=== PATIENT | male | born 1935 | race Caucasian/White ===

== ENCOUNTER → 2016-12-06 | Outpatient (CLI) | payer MEDICARE, BC ==
--- NOTE | 2016-12-06 12:34 | ECHOF ---
Referral Reason:R07.89 atypical chest pain MEASUREMENTS -------- HEIGHT: 188.0 cm WEIGHT: 99.8 kg BP: 136/77 RVIDd: 3.5 cm (< 3.3) IVSd: 0.9 cm (0.6 - 1.1) LVIDd: 4.1 cm (3.9 - 5.3) LVPWd: 1.0 cm (0.6 - 1.1) IVSs: 1.7 cm LVIDs: 3.1 cm LVPWs: 1.5 cm LA Diam: 2.9 cm (2.7 - 3.8) LAESV Index (A-L): 26.36 ml/m Ao Diam: 3.6 cm (2.0 - 3.7) AV Cusp: 1.7 cm (1.5 - 2.6) LA Diam: 3.2 cm (2.7 - 3.8) MV EXCURSION: 13.536 mm (> 18.000) MV EF SLOPE: 58 mm/s (70 - 150) EPSS: 0.7 cm MV E Roque: 0.66 m/s MV DecT: 307 ms MV A Roque: 0.80 m/s MV E/A Ratio: 0.83 RAP: 5.00 mmHg RVSP: 33.11 mmHg FINDINGS -------- Sinus rhythm with extra systolic beats. This was a technically good study. Left ventricular wall thickness is normal. Overall left ventricular systolic function is normal with, an EF between 55 - 60 %. The right ventricle is mildly enlarged. Normal LA size by volume 22+/-6 ml/m2. The right atrium is normal in size. Aortic valve is trileaflet and is mildly thickened. Mild mitral annular calcification present. Mild mitral regurgitation is present. Mild tricuspid regurgitation present. Right ventricular systolic pressure is normal at < 35 mmHg. Pulmonic valve appears structurally normal. The aortic root size is normal. Normal inferior vena cava with normal inspiratory collapse consistent with estimated right atrial pressure of 5 mmHg. Echo free space may represent effusion or a pericardial fat pad. CONCLUSIONS -------- 1. Sinus rhythm with extra systolic beats. 2. Mild mitral regurgitation is present. 3. Mild tricuspid regurgitation present. 4. Right ventricular systolic pressure is normal at < 35 mmHg. 5. Pulmonic valve appears structurally normal. 6. The aortic root size is normal. 7. Echo free space may represent effusion or a pericardial fat pad. 8. This was a technically good study. 9. Left ventricular wall thickness is normal. 10. Overall left ventricular systolic function is normal with, an EF between 55 - 60 %. 11. The right ventricle is mildly enlarged. 12. Normal LA size by volume 22+/-6 ml/m2. 13. The right atrium is normal in size. 14. Aortic valve is trileaflet and is mildly thickened. 15. Mild mitral annular calcification present. [employer]ER: Caridad Hauser RDCS
== END | disposition home or self-care (01) ==
LOC: RADECHMAIN 10:49
PROVIDERS: ATTEND Family Medicine
DX: I08.3 Combined rheumatic disorders of mitral, aortic and tricuspid valves (principal)
CPT/HCPCS: 93306

== ENCOUNTER 2017-10-01 11:59 | Emergency (ER) | payer MEDICARE, BC ==
[2017-10-01 12:05] VITALS: BP 125/67; PULSE 101; RESP 18; TEMP 97.5
--- NOTE | 2017-10-01 12:31 | ED ---
Skin/Abscess/FB HPI - General Chief complaint: Skin/Abscess/Foreign Body Stated complaint: Poss Shingles Time Seen by Provider: 10/01/17 12:12 Source: patient Mode of arrival: ambulatory Limitations: no limitations - History of Present Illness Initial comments: 82-year-old male patient presented to the emergency department today for evaluation of a rash to his right lower quadrant abdomen. Patient states that the rash started approximately one week ago. States that the area has been red and very itchy. He states that it started off as a very small area the size of his thumbnail and has become larger. He denies any pain, blisters, or drainage from the site. He states that he did start wearing some new belts over the last couple of months. He denies use of any new soaps, detergents, lotions, or other new products. Denies rash to any other part of his body. Denies any cough, congestion, nasal drainage, sore throat, or swollen throat. Patient denies any recent fever, chills, shortness breath, chest pain, abdominal pain, nausea, vomiting, diarrhea, constipation, back pain, numbness, tingling, headache, visual changes, hematuria, dysuria, urinary frequency, urinary urgency , or any other complaints. Patient is concerned for shingles. He has not had zoster vaccination. - Related Data Home Medications Medication Instructions Recorded Confirmed Lisinopril [Zestril] 10 mg PO DAILY 10/01/17 10/01/17 Simvastatin [Zocor] 20 mg PO HS 10/01/17 10/01/17 Tamsulosin [Flomax] 0.4 mg PO DAILY 10/01/17 10/01/17 Allergies Allergy/AdvReac Type Severity Reaction Status Date / Time Sulfa (Sulfonamide Allergy Rash/Hives Verified 10/01/17 12:05 Antibiotics) Review of Systems ROS Statement: Those systems with pertinent positive or pertinent negative responses have been documented in the HPI. ROS Other: All systems not noted in ROS Statement are negative. Past Medical History Past Medical History: Hyperlipidemia, Hypertension, Prostate Disorder History of Any Multi-Drug Resistant Organisms: None Reported Additional Past Surgical History / Comment(s): AAA Past Psychological History: No Psychological Hx Reported Smoking Status: Current every day smoker Past Alcohol Use History: None Reported Past Drug Use History: None Reported General Exam Limitations: no limitations General appearance: alert, in no apparent distress, other (This is a well- developed, nourished, healthy appearing 82-year-old male patient in no acute distress. Vital signs upon presentation are temperature 97.5F, pulse 101, respirations 18, blood pressure 125/67, pulse ox 99% on room air.) Eye exam: Present: normal appearance, PERRL, EOMI. Absent: scleral icterus, conjunctival injection, periorbital swelling ENT exam: Present: normal exam, normal oropharynx, mucous membranes moist Respiratory exam: Present: normal lung sounds bilaterally. Absent: respiratory distress, wheezes, rales, rhonchi, stridor Cardiovascular Exam: Present: regular rate, normal rhythm, normal heart sounds. Absent: systolic murmur, diastolic murmur, rubs, gallop, clicks Neurological exam: Present: alert, oriented X3, CN II-XII intact Psychiatric exam: Present: normal affect, normal mood Skin exam: Present: warm, dry, intact, normal color, rash Expanded Type of lesion: Present: rash Distribution of rash: abdomen (RLQ) Description of rash: Present: size (small), erythematous. Absent: tenderness, swelling, vesicular, blisters, bullous, petechial, purpuic, urticarial, crusting , discharge, fluctuant Course Vital Signs 10/01/17 12:01 Temperature 97.5 F L Pulse Rate 101 H Respiratory 18 Rate Blood Pressure 125/67 O2 Sat by Pulse 99 Oximetry Medical Decision Making - Medical Decision Making 82-year-old male patient presented to the emergency department today for evaluation of a rash to his right lower quadrant abdomen. Physical examination did reveal a small area of erythematous small round flat lesions, small amount of surrounding erythema. Lesions are nonvesicular and non-petechial. Patient reported that the rash has been present for one week and has been very itchy. I did inform him that symptoms are not consistent with a herpes zoster infection. Patient has recently started wearing new belts. I did inform and this is possibly a contact dermatitis related to this. He is instructed to use hydrocortisone cream as well as Benadryl for symptom relief. He is instructed to follow-up with his primary care physician for recheck in 1-2 days. He is instructed to return here immediately for any new, worsening, or concerning symptoms. He verbalizes understanding and agrees with this plan. Disposition Clinical Impression: Rash Disposition: HOME SELF-CARE Condition: Good Instructions: Contact Dermatitis (ED), Acute Rash (ED) Additional Instructions: Purchase hydrocortisone cream [id number]. Apply this as directed by package labeling. You can take benadryl 25-50mg for symptom relief as well. Follow up for a recheck with your primary doctor if symptoms do not improve over the next 1-2 days. Return here immediately for any new, worsening, or concerning symptoms. Referrals: Johnny Wright DO [Primary Care Provider] - 1-2 days Time of Disposition: 12:31
== END 2017-10-01 12:44 | disposition home or self-care (01) ==
LOC: EC 11:59
DX: R21 Rash and other nonspecific skin eruption (principal); E78.5 Hyperlipidemia, unspecified; I10 Essential (primary) hypertension; N42.9 Disorder of prostate, unspecified; F17.200 Nicotine dependence, unspecified, uncomplicated; Z79.899 Other long term (current) drug therapy; Z88.2 Allergy status to sulfonamides
CPT/HCPCS: 99282

== ENCOUNTER 2018-10-09 12:55 | Emergency (ER) | payer BC, MEDICARE ==
--- NOTE | 2018-10-09 13:44 | ED ---
General Adult HPI - General Chief complaint: ENT Stated complaint: rt side ear/neck/shoulder pain Time Seen by Provider: 10/09/18 13:21 Source: patient, RN notes reviewed, old records reviewed Mode of arrival: ambulatory Limitations: no limitations - History of Present Illness Initial comments: 83-year-old male presents for evaluation of sharp pain in the right side of his throat. This is worse with swallowing. He's had difficulty eating secondary to the pain. Denies any dyspnea. Denies cough. Denies URI symptoms. Denies ear pain. Patient's pain is normally in the right side of his neck. He does report some radiation into the shoulder which is worse with movement. Denies central chest pain. Denies abdominal pain nausea vomiting. - Related Data Home Medications Medication Instructions Recorded Confirmed Lisinopril [Zestril] 10 mg PO DAILY 10/01/17 10/09/18 Simvastatin [Zocor] 20 mg PO HS 10/01/17 10/09/18 Tamsulosin [Flomax] 0.4 mg PO HS 10/01/17 10/09/18 Previous Rx's Medication Instructions Recorded methylPREDNISolone Dose Pack 4 mg PO DIRECTED #21 package 10/09/18 [Medrol Dose Pack] Allergies Allergy/AdvReac Type Severity Reaction Status Date / Time Sulfa (Sulfonamide Allergy Rash/Hives Verified 10/09/18 13:28 Antibiotics) Review of Systems ROS Statement: Those systems with pertinent positive or pertinent negative responses have been documented in the HPI. ROS Other: All systems not noted in ROS Statement are negative. Past Medical History Past Medical History: Hyperlipidemia, Hypertension, Prostate Disorder History of Any Multi-Drug Resistant Organisms: None Reported Additional Past Surgical History / Comment(s): AAA Past Psychological History: No Psychological Hx Reported Smoking Status: Current every day smoker Past Alcohol Use History: None Reported Past Drug Use History: None Reported General Exam Limitations: no limitations General appearance: alert, in no apparent distress Head exam: Present: atraumatic, normocephalic Eye exam: Present: normal appearance, PERRL, EOMI ENT exam: Present: normal oropharynx, mucous membranes moist Neck exam: Present: normal inspection, full ROM, lymphadenopathy. Absent: tenderness, meningismus Respiratory exam: Present: normal lung sounds bilaterally, respiratory distress Cardiovascular Exam: Present: regular rate, normal rhythm GI/Abdominal exam: Present: soft. Absent: distended, tenderness Extremities exam: Present: normal inspection, normal capillary refill. Absent: pedal edema Neurological exam: Present: alert, oriented X3 Psychiatric exam: Present: normal affect, normal mood Skin exam: Present: warm, dry, intact. Absent: cyanosis, diaphoretic Course Vital Signs 10/09/18 10/09/18 13:02 14:18 Temperature 98.1 F Pulse Rate 89 78 Respiratory 18 16 Rate Blood Pressure 136/87 115/79 O2 Sat by Pulse 99 97 Oximetry EKG Findings - EKG Comments: EKG Findings:: EKG: Normal sinus rhythm, left axis deviation, low voltage, rate of 84, CA interval 178, QRS duration 82, QTC 427, no ST segment elevation or depression. Medical Decision Making - Medical Decision Making 82-year-old male with right-sided throat pain and right shoulder pain. There was some concern that this could be anginal equivalent, EKG was obtained which is negative for acute signs of ischemia, troponin was negative, normal CBC, normal CMP, CT obtained of the soft tissue neck, this is negative for any mass effect or infectious process. There is degenerative disease within the cervical spine. Patient will be prescribed a short course of steroids. He will follow-up with his primary care physician. - Lab Data Result diagrams: 10/09/18 14:00 10/09/18 14:00 Lab Results 10/09/18 10/09/18 10/09/18 Range/Units 14:00 14:00 14:00 WBC 8.9 (3.8-10.6) k/uL RBC 5.17 (4.30-5.90) m/uL Hgb 16.6 (13.0-17.5) gm/dL Hct 48.2 (39.0-53.0) % MCV 93.2 (80.0-100.0) fL MCH 32.2 (25.0-35.0) pg MCHC 34.6 (31.0-37.0) g/dL RDW 12.9 (11.5-15.5) % Plt Count 180 (150-450) k/uL Neutrophils % 63 % Lymphocytes % 24 % Monocytes % 6 % Eosinophils % 6 % Basophils % 0 % Neutrophils # 5.6 (1.3-7.7) k/uL Lymphocytes # 2.1 (1.0-4.8) k/uL Monocytes # 0.5 (0-1.0) k/uL Eosinophils # 0.5 (0-0.7) k/uL Basophils # 0.0 (0-0.2) k/uL Sodium 141 (137-145) mmol/L Potassium 4.5 (3.5-5.1) mmol/L Chloride 103 (98-107) mmol/L Carbon Dioxide 31 H (22-30) mmol/L Anion Gap 7 mmol/L BUN 14 (9-20) mg/dL Creatinine 1.32 H (0.66-1.25) mg/dL Est GFR (CKD-EPI)AfAm 58 (>60 ml/min/1.73 sqM) Est GFR (CKD-EPI)NonAf 51 (>60 ml/min/1.73 sqM) Glucose 102 H (74-99) mg/dL Calcium 10.1 (8.4-10.2) mg/dL Total Bilirubin 0.9 (0.2-1.3) mg/dL AST 25 (17-59) U/L ALT 29 (21-72) U/L Alkaline Phosphatase 84 (38-126) U/L Troponin I <0.012 (0.000-0.034) ng/mL Total Protein 7.6 (6.3-8.2) g/dL Albumin 4.3 (3.5-5.0) g/dL Disposition Clinical Impression: Sore throat, Degenerative arthritis of cervical spine Disposition: HOME SELF-CARE Instructions: Strep Throat (ED) Prescriptions: methylPREDNISolone Dose Pack [Medrol Dose Pack] 4 mg PO DIRECTED #21 package Is patient prescribed a controlled substance at d/c from ED?: No Referrals: Johnny Wright DO [Primary Care Provider] - 1-2 days Time of Disposition: 15:56
[2018-10-09 14:24] LABS: Basophils % (A) 0 %; Eosinophils # (A) 0.5 k/uL (0-0.7); Eosinophils % (A) 6 %; HCT 48.2 % (39.0-53.0); HGB 16.6 gm/dL (13.0-17.5); Lymphocytes # (A) 2.1 k/uL (1.0-4.8); Lymphocytes % (A) 24 %; MCH 32.2 pg (25.0-35.0); MCHC 34.6 g/dL (31.0-37.0); MCV 93.2 fL (80.0-100.0); Mean Platelet Volume 7.2; Monocytes # (A) 0.5 k/uL (0-1.0); Monocytes % (A) 6 %; Neutrophils # (A) 5.6 k/uL (1.3-7.7); Neutrophils % (A) 63 %; Platelet Count 180 k/uL (150-450); RBC 5.17 m/uL (4.30-5.90); RDW 12.9 % (11.5-15.5); WBC 8.9 k/uL (3.8-10.6)
[2018-10-09 14:35] LABS: Albumin 4.3 g/dL (3.5-5.0); Calcium 10.1 mg/dL (8.4-10.2); Potassium 4.5 mmol/L (3.5-5.1); Total Bilirubin 0.9 mg/dL (0.2-1.3); Total Protein 7.6 g/dL (6.3-8.2)
--- NOTE | 2018-10-09 15:47 | CT ---
EXAMINATION TYPE: CT soft tissue neck w con DATE OF EXAM: 10/09/2018 HISTORY: Right sided neck tenderness and decreased range of motion COMPARISON: NONE CT DLP: 346.3 mGycm. Automated Exposure Control for Dose Reduction was Utilized. TECHNIQUE: CT scan of the neck is performed with IV Contrast, patient injected with 80 mL of Isovue 300, axial images are obtained, coronal and sagittal reformatted images are reviewed. FINDINGS: Airway: True vocal cords are unremarkable. Airway is patent. Possible secretions are seen within the left piriform sinus. Vallecula is unremarkable. [place] tonsils are symmetric. Fossa of [place] and torus tubarius are unremarkable. Parotid/submandibular glands: No gross abnormality seen. Carotid/Vascular Structures: Minimal calcific and noncalcific atheromatous plaquing is seen of the gr eat vessels, left carotid bulb and aortic arch with no hemodynamically significant stenosis. Vertebra l arteries also appear patent and are codominant. Visualized portions of the [place] appear intact. Osseous Structures: There are moderate multilevel degenerative changes of the cervical spine with mil d retrolisthesis of C4 on C5 and multilevel uncovertebral hypertrophy, facet arthropathy, interverteb ral disc space narrowing and small anterior osteophytes. No abnormal prevertebral soft tissue swellin g is seen. There is at least mild bilateral neural foraminal narrowing at C4-C5 and C5-C6 with mild s kailee canal stenosis at C4-C5. Other: Scattered areas of atelectasis are seen within the lung apices. IMPRESSION: 1. No soft tissue abnormality of the right neck. Airway is patent other than probable secretions in t he left piriform sinus. 2. Moderate multilevel degenerative disc disease of the cervical spine with mild spinal canal stenosi s at C4-C5 and mild bilateral neural foraminal narrowing at C4-C5 and C5-C6 as well as slight retroli sthesis of C4 on C5, likely on a degenerative basis.
[2018-10-09 16:09] VITALS: BP 109/72; PULSE 85; RESP 18; TEMP 98
== END 2018-10-09 16:10 | disposition home or self-care (01) ==
LOC: EC 12:55
DX: J02.9 Acute pharyngitis, unspecified (principal); M47.812 Spondylosis without myelopathy or radiculopathy, cervical region; M25.511 Pain in right shoulder; E78.5 Hyperlipidemia, unspecified; I10 Essential (primary) hypertension; N42.9 Disorder of prostate, unspecified; F17.200 Nicotine dependence, unspecified, uncomplicated; Z79.899 Other long term (current) drug therapy; Z88.2 Allergy status to sulfonamides
CPT/HCPCS: 36415; 93005; 80053; 84484; 85025; 70491; 99284; Q9967

== ENCOUNTER 2019-07-23 05:01 | Emergency (ER) | payer MEDICARE ==
[2019-07-23 05:09] VITALS: RESP 18
[2019-07-23] MEDS ORDERED: MECLIZINE 12.5 MG TAB PO STA (05:58)
[2019-07-23] MEDS ORDERED: SODIUM CHLORIDE 0.9% 1,000 ML IV STA (05:58)
--- NOTE | 2019-07-23 06:13 | ED ---
Dizziness HPI - General Chief Complaint: Dizziness Stated Complaint: bilat ear pain, headache Source: patient Mode of arrival: ambulatory - History of Present Illness Initial Comments: Magno is a pleasant 84-year-old gentleman who presents the emergency department today for evaluation of dizziness, which seems to be worse when turning his head to the right. Patient also reports he has ringing in his left ear which she has had intermittently in the past as well as a new washing or clicking sound in his right ear which she has not had in the past. Patient reports he does have a history of a AAA and his doctor is concerned that he can develop aneurysms elsewhere so he does have carotid ultrasounds on an annual basis and has been told are normal in the past. Patient reports that for the past week to 2 weeks he's noticed this whooshing sound in his right ear, and also seems to be causing him a mild headache. Patient states that last night he laid down to go to sleep and was unable to sleep due to the whooshing in the right ear and the ringing in the left ear. Patient also states anytime he turns his head to the right he feels like the room is spinning around him however if he rests it resolves he is okay if he turns his head to the left. She reports he has a history of cerumen impaction is required irrigation in the past, patient states that one time in the past he had irrigation of his left ear resulting in damage to his tympanic membrane and he suffered from severe vertigo for 2-3 days in which she had to lean on the wall to ambulate. However he does not suffer from chronic vertigo. - Related Data Home Medications Medication Instructions Recorded Confirmed Lisinopril [Zestril] 10 mg PO DAILY 10/01/17 07/23/19 Simvastatin [Zocor] 20 mg PO HS 10/01/17 07/23/19 Tamsulosin [Flomax] 0.4 mg PO HS 10/01/17 07/23/19 Previous Rx's Medication Instructions Recorded Meclizine [Antivert] 25 mg PO BID #30 tab 07/23/19 Allergies Allergy/AdvReac Type Severity Reaction Status Date / Time Sulfa (Sulfonamide Allergy Rash/Hives Verified 07/23/19 08:00 Antibiotics) Review of Systems ROS Statement: Those systems with pertinent positive or pertinent negative responses have been documented in the HPI. ROS Other: All systems not noted in ROS Statement are negative. Past Medical History Past Medical History: Hyperlipidemia, Hypertension, Prostate Disorder History of Any Multi-Drug Resistant Organisms: None Reported Additional Past Surgical History / Comment(s): AAA clipped, colonoscopy-polyp removed Past Psychological History: No Psychological Hx Reported Smoking Status: Current every day smoker Past Alcohol Use History: None Reported Past Drug Use History: None Reported General Exam - General Exam Comments Initial Comments: Physical Exam GENERAL: Patient is well-developed and well-nourished. Patient is nontoxic and well-hydr ated and is in no distress. HENT: Normocephalic, Atraumatic. NO carotid bruit EYES: PERRL, EOMI PULMONARY: Unlabored respirations. No audible rales rhonchi or wheezing was noted. CARDIOVASCULAR: There is a regular rate and rhythm without any murmurs gallops or rubs. ABDOMEN: Soft and nontender with normal bowel sounds. SKIN: Skin is clear with no lesions or rashes and otherwise unremarkable. : Deferred NEUROLOGIC: Patient is alert and oriented x3. Moving all extremities spontaneously MUSCULOSKELETAL: Normal extremities with adequate strength and full range of motion. No lower extremity swelling or edema. No calf tenderness. PSYCHIATRIC: Normal psychiatric evaluation. Course Vital Signs 07/23/19 07/23/19 07/23/19 05:04 07:06 08:31 Temperature 97.3 F L 98 F Pulse Rate 98 71 75 Respiratory 18 18 18 Rate Blood Pressure 132/83 118/74 114/78 O2 Sat by Pulse 97 98 98 Oximetry EKG Findings - EKG Comments: EKG Findings:: CT was obtained due to complaint of dizziness, EKG obtained at 6. 5 AM, rate is 82 rhythm is sinus with a leftward axis, normal intervals, [place] 184, QRS 86, QTC 418, there are no acute ST elevations or depressions there is no evidence of acute ischemia, infarction or arrhythmia. Medical Decision Making - Medical Decision Making Patient was seen and evaluated, history is obtained from patient and sent patient seems to be suffering from Mnire's disease with ringing in the ear and vertiginous symptoms in the left ear however he does report a whooshing-type sound in the right ear which she says at times sounds like there may be a bug in there but at times just sounds a whooshing. Given the patient's history of aneurysms this is concerning that he could be caring blood flow therefore CTA was ordered. CTA resulted with no acute findings. Patient was reevaluated after fluids and Antivert reports his symptoms have resolved. At this time patient is comfortable plan for discharge home and outpatient follow-up patient will be referred to ENT for further evaluation, patient's daughter bedside familiar with Dr. White as other family members have been seen by him and is comfortable with establishing follow-up. - Lab Data Result diagrams: 07/23/19 06:17 07/23/19 06:17 Lab Results 07/23/19 07/23/19 Range/Units 06:17 06:17 WBC 9.1 (3.8-10.6) k/uL RBC 5.08 (4.30-5.90) m/uL Hgb 16.3 (13.0-17.5) gm/dL Hct 47.3 (39.0-53.0) % MCV 93.0 (80.0-100.0) fL MCH 32.1 (25.0-35.0) pg MCHC 34.5 (31.0-37.0) g/dL RDW 14.7 (11.5-15.5) % Plt Count 171 (150-450) k/uL Neutrophils % 66 % Lymphocytes % 18 % Monocytes % 7 % Eosinophils % 7 % Basophils % 1 % Neutrophils # 6.0 (1.3-7.7) k/uL Lymphocytes # 1.6 (1.0-4.8) k/uL Monocytes # 0.6 (0-1.0) k/uL Eosinophils # 0.6 (0-0.7) k/uL Basophils # 0.1 (0-0.2) k/uL Sodium 140 (137-145) mmol/L Potassium 4.5 (3.5-5.1) mmol/L Chloride 105 (98-107) mmol/L Carbon Dioxide 25 (22-30) mmol/L Anion Gap 10 mmol/L BUN 19 (9-20) mg/dL Creatinine 1.38 H (0.66-1.25) mg/dL Est GFR (CKD-EPI)AfAm 55 (>60 ml/min/1.73 sqM) Est GFR (CKD-EPI)NonAf 47 (>60 ml/min/1.73 sqM) Glucose 123 H (74-99) mg/dL Calcium 9.8 (8.4-10.2) mg/dL Total Bilirubin 0.6 (0.2-1.3) mg/dL AST 23 (17-59) U/L ALT 23 (21-72) U/L Alkaline Phosphatase 84 (38-126) U/L Total Protein 7.4 (6.3-8.2) g/dL Albumin 4.4 (3.5-5.0) g/dL Disposition Clinical Impression: Vertigo Disposition: HOME SELF-CARE Condition: Stable Instructions (If sedation given, give patient instructions): Dizziness (ED) Prescriptions: Meclizine [Antivert] 25 mg PO BID #30 tab Is patient prescribed a controlled substance at d/c from ED?: No Referrals: Jonhny Wright DO [Primary Care Provider] - 1-2 days Johnny Yates DO [Doctor of Osteopathic Medicine] - 1-2 days
[2019-07-23 06:25] LABS: Basophils # (A) 0.1 k/uL (0-0.2); Basophils % (A) 1 %; Eosinophils # (A) 0.6 k/uL (0-0.7); Eosinophils % (A) 7 %; HCT 47.3 % (39.0-53.0); HGB 16.3 gm/dL (13.0-17.5); Lymphocytes # (A) 1.6 k/uL (1.0-4.8); Lymphocytes % (A) 18 %; MCH 32.1 pg (25.0-35.0); MCHC 34.5 g/dL (31.0-37.0); Mean Platelet Volume 7.4; Monocytes # (A) 0.6 k/uL (0-1.0); Monocytes % (A) 7 %; Neutrophils % (A) 66 %; Platelet Count 171 k/uL (150-450); RBC 5.08 m/uL (4.30-5.90); RDW 14.7 % (11.5-15.5); WBC 9.1 k/uL (3.8-10.6)
[2019-07-23 06:38] LABS: Albumin 4.4 g/dL (3.5-5.0); Calcium 9.8 mg/dL (8.4-10.2); Potassium 4.5 mmol/L (3.5-5.1); Total Bilirubin 0.6 mg/dL (0.2-1.3); Total Protein 7.4 g/dL (6.3-8.2)
--- NOTE | 2019-07-23 07:53 | CT ---
EXAMINATION TYPE: CT angio head neck DATE OF EXAM: 07/23/2019 HISTORY: bilateral ear pain and ringing COMPARISON: CT neck October 09, 2018 CT DLP: 645.3 mGycm. Automated Exposure Control for Dose Reduction was Utilized. TECHNIQUE: CTA scan of the abdomen neck are performed with IV Contrast, patient injected with 50 mL of Isovue 370, axial images are obtained, coronal and sagittal reformatted images are reviewed. Three -D reconstructed images are created on an independent workstation and reviewed. FINDINGS: Carotid/Vascular Structures: Mild peripheral mixed plaque in the aortic arch. Normal three-vessel jenae gin from the arch. No significant plaque or stenosis of right common or internal carotid artery inclu ding at level of right carotid bulb. Patent external carotid artery without stenosis. No significant plaque or stenosis in left common carotid artery including carotid bulb. Minimal calci fied plaque periphery of left proximal internal carotid artery without significant stenosis. The left external carotid artery without significant stenosis. Codominant vertebrobasilar system redemonstrated. No significant focal stenosis is seen. Patent bilat eral posterior communicating arteries. No aneurysm. Anterior circulation shows patent anterior commun icating artery without significant focal stenosis or aneurysmal change. Other: Brain parenchyma shows mild diffuse age-related cerebral atrophy and chronic small vessel isch emic changes. Mastoid air cells show no suspicious fluid signal. Some mild eccentric mucosal thickeni ng posterior right sphenoid sinus is redemonstrated less prominent from prior. There is loss of normal cervical curvature with grade 1 retrolisthesis C4 on C5. There is moderate sp urring C5-C6 and C6-C7 levels anteriorly. Slight scoliotic curvature on the coronal images. . IMPRESSION: 1. No aneurysmal change or significant stenosis at level of [place] of [place]. 2. No significant stenosis in common or internal carotid arteries bilaterally.
[2019-07-23 08:32] VITALS: BP 114/78; PULSE 75; TEMP 98
== END 2019-07-23 08:31 | disposition home or self-care (01) ==
LOC: EC 05:01
DX: R42 Dizziness and giddiness (principal); H92.03 Otalgia, bilateral; R51 Headache; H93.12 Tinnitus, left ear; E78.5 Hyperlipidemia, unspecified; I10 Essential (primary) hypertension; N42.9 Disorder of prostate, unspecified; F17.200 Nicotine dependence, unspecified, uncomplicated; Z79.899 Other long term (current) drug therapy; Z88.2 Allergy status to sulfonamides
CPT/HCPCS: 99284; 96360; 96361; 36415; 93005; 80053; 85025; 70496; 70498; Q9967

== ENCOUNTER 2019-12-27 09:59 | Emergency (ER) | payer MEDICARE ==
[2019-12-27 10:06] VITALS: RESP 18; TEMP 97.7
[2019-12-27] MEDS ORDERED: SODIUM CHLORIDE 0.9% 1,000 ML IV ONE (10:18)
[2019-12-27 10:40] LABS: Appearance,Urine Clear (Clear); Basophils # (A) 0.1 k/uL (0-0.2); Basophils % (A) 1 %; Bilirubin,Urine Negative (Negative); Blood,Urine Trace (Negative); Color,Urine Yellow; Eosinophils # (A) 0.5 k/uL (0-0.7); Eosinophils % (A) 5 %; Glucose,Urine (UA) Negative (Negative); HCT 47.7 % (39.0-53.0); HGB 16.1 gm/dL (13.0-17.5); Hyaline Casts,Urine 1 /lpf (0-2); Ketones,Urine Negative (Negative); Leukocyte Esterase,Urine Negative (Negative); Lymphocytes # (A) 1.7 k/uL (1.0-4.8); Lymphocytes % (A) 20 %; MCH 31.9 pg (25.0-35.0); MCHC 33.9 g/dL (31.0-37.0); MCV 94.1 fL (80.0-100.0); Mean Platelet Volume 7.5; Monocytes # (A) 0.5 k/uL (0-1.0); Monocytes % (A) 5 %; Mucus,Urine Rare /hpf; Neutrophils # (A) 5.8 k/uL (1.3-7.7); Neutrophils % (A) 67 %; Nitrite,Urine Negative (Negative); Platelet Count 173 k/uL (150-450); Protein,Urine Negative (Negative); RBC 5.07 m/uL (4.30-5.90); RBC,Urine 1 /hpf (0-5); RDW 12.6 % (11.5-15.5); Specific Gravity,Urine 1.009 (1.001-1.035); Urobilinogen,Urine <2.0 mg/dL (<2.0); WBC 8.7 k/uL (3.8-10.6); WBC,Urine 1 /hpf (0-5)
[2019-12-27 10:54] LABS: Potassium 4.5 mmol/L (3.5-5.1)
[2019-12-27 10:55] LABS: Albumin 4.4 g/dL (3.5-5.0); Calcium 9.6 mg/dL (8.4-10.2); Total Bilirubin 0.9 mg/dL (0.2-1.3); Total Protein 7.3 g/dL (6.3-8.2)
--- NOTE | 2019-12-27 11:53 | ED ---
General Adult HPI - General Chief complaint: Urogenital Stated complaint: Kidney pain Time Seen by Provider: 12/27/19 10:08 Source: patient, RN notes reviewed Mode of arrival: ambulatory Limitations: no limitations - History of Present Illness Initial comments: This an 84-year-old male presents emergency Department chief complaint of lower abdominal pain, difficulty urinating. Patient states he's always had problems urinating and states that he takes Flomax for this. Patient has been seen by urologist. Patient states that he's having worsening lower abdominal pain. 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 He states this was done several years ago. Denies any current back pain no lower extremity symptoms. Patient states he tries urinate but still feels he has to go after. - Related Data Home Medications Medication Instructions Recorded Confirmed Lisinopril [Zestril] 10 mg PO DAILY 10/01/17 12/27/19 Simvastatin [Zocor] 20 mg PO HS 10/01/17 12/27/19 Tamsulosin [Flomax] 0.4 mg PO DAILY@1800 10/01/17 12/27/19 Omeprazole 20 mg PO BID PRN 12/27/19 12/27/19 Psyllium Husk (with Sugar) 5 ml PO TID 12/27/19 12/27/19 [Metamucil Powder] Previous Rx's Medication Instructions Recorded Phenazopyridine [Pyridium] 200 mg PO TID #6 tablet 12/27/19 Tamsulosin [Flomax] 0.4 mg PO DAILY #14 cap 12/27/19 Allergies Allergy/AdvReac Type Severity Reaction Status Date / Time Sulfa (Sulfonamide Allergy Rash/Hives Verified 12/27/19 10:33 Antibiotics) Review of Systems ROS Statement: Those systems with pertinent positive or pertinent negative responses have been documented in the HPI. ROS Other: All systems not noted in ROS Statement are negative. Past Medical History Past Medical History: Hyperlipidemia, Hypertension, Prostate Disorder History of Any Multi-Drug Resistant Organisms: None Reported Additional Past Surgical History / Comment(s): AAA clipped, colonoscopy-polyp removed Past Psychological History: No Psychological Hx Reported Smoking Status: Current every day smoker Past Alcohol Use History: None Reported Past Drug Use History: None Reported General Exam Limitations: no limitations General appearance: alert, in no apparent distress Head exam: Present: atraumatic, normocephalic, normal inspection Eye exam: Present: normal appearance, PERRL, EOMI. Absent: scleral icterus, conjunctival injection, periorbital swelling Neck exam: Present: normal inspection. Absent: tenderness, meningismus, lymphadenopathy Respiratory exam: Present: normal lung sounds bilaterally. Absent: respiratory distress, wheezes, rales, rhonchi, stridor Cardiovascular Exam: Present: regular rate, normal rhythm, normal heart sounds. Absent: systolic murmur, diastolic murmur, rubs, gallop, clicks GI/Abdominal exam: Present: soft, tenderness (Moderate suprapubic tenderness), normal bowel sounds, other (Old surgical scar noted). Absent: distended, guarding, rebound, rigid Extremities exam: Present: other (Lower extremity pulses equal bilaterally) Course Vital Signs 12/27/19 12/27/19 10:01 12:21 Temperature 97.7 F Pulse Rate 46 L 83 Respiratory 18 18 Rate Blood Pressure 126/62 125/97 O2 Sat by Pulse 96 98 Oximetry Medical Decision Making - Medical Decision Making 84-year-old male presents emergency Department with chief complaint of difficulty urinating. Prostate is enlarged and CT, labs unremarkable otherwise. Patient is symptomatic and feels that he may have ear infection with antibiotic sreturnparameterswerediscussed. - Lab Data Result diagrams: 12/27/19 10:30 12/27/19 10:30 Lab Results 12/27/19 12/27/19 12/27/19 Range/Units 10:30 10:30 10:30 WBC 8.7 (3.8-10.6) k/uL RBC 5.07 (4.30-5.90) m/uL Hgb 16.1 (13.0-17.5) gm/dL Hct 47.7 (39.0-53.0) % MCV 94.1 (80.0-100.0) fL MCH 31.9 (25.0-35.0) pg MCHC 33.9 (31.0-37.0) g/dL RDW 12.6 (11.5-15.5) % Plt Count 173 (150-450) k/uL Neutrophils % 67 % Lymphocytes % 20 % Monocytes % 5 % Eosinophils % 5 % Basophils % 1 % Neutrophils # 5.8 (1.3-7.7) k/uL Lymphocytes # 1.7 (1.0-4.8) k/uL Monocytes # 0.5 (0-1.0) k/uL Eosinophils # 0.5 (0-0.7) k/uL Basophils # 0.1 (0-0.2) k/uL Sodium 139 (137-145) mmol/L Potassium 4.5 (3.5-5.1) mmol/L Chloride 104 (98-107) mmol/L Carbon Dioxide 25 (22-30) mmol/L Anion Gap 10 mmol/L BUN 14 (9-20) mg/dL Creatinine 1.32 H (0.66-1.25) mg/dL Est GFR (CKD-EPI)AfAm 58 (>60 ml/min/1.73 sqM) Est GFR (CKD-EPI)NonAf 50 (>60 ml/min/1.73 sqM) Glucose 123 H (74-99) mg/dL Calcium 9.6 (8.4-10.2) mg/dL Total Bilirubin 0.9 (0.2-1.3) mg/dL AST 29 (17-59) U/L ALT 22 (4-49) U/L Alkaline Phosphatase 79 (38-126) U/L Total Protein 7.3 (6.3-8.2) g/dL Albumin 4.4 (3.5-5.0) g/dL Urine Color Yellow Urine Appearance Clear (Clear) Urine pH 6.0 (5.0-8.0) Ur Specific Rector 1.009 (1.001-1.035) Urine Protein Negative (Negative) Urine Glucose (UA) Negative (Negative) Urine Ketones Negative (Negative) Urine Blood Trace H (Negative) Urine Nitrite Negative (Negative) Urine Bilirubin Negative (Negative) Urine Urobilinogen <2.0 (<2.0) mg/dL Ur Leukocyte Esterase Negative (Negative) Urine RBC 1 (0-5) /hpf Urine WBC 1 (0-5) /hpf Hyaline Casts 1 (0-2) /lpf Urine Mucus Rare H (None) /hpf Disposition Clinical Impression: Abdominal pain, BPH (benign prostatic hyperplasia), Bladder spasms Disposition: HOME SELF-CARE Condition: Stable Instructions (If sedation given, give patient instructions): Enlarged Prostate (BPH) (ED) Additional Instructions: Please return to the Emergency Department if symptoms worsen or any other concerns. Prescriptions: Tamsulosin [Flomax] 0.4 mg PO DAILY #14 cap Phenazopyridine [Pyridium] 200 mg PO TID #6 tablet Is patient prescribed a controlled substance at d/c from ED?: No Referrals: Johnny Wright DO [Primary Care Provider] - 1-2 days Time of Disposition: 12:54
[2019-12-27 12:22] VITALS: BP 125/97; PULSE 83
--- NOTE | 2019-12-27 12:23 | CT ---
EXAMINATION TYPE: CT abdomen pelvis w con DATE OF EXAM: 12/27/2019 COMPARISON: 02/13/2016 HISTORY: Abdominal pain CT DLP: 1451.6 mGycm Automated exposure control for dose reduction was used. CONTRAST: CT scan of the abdomen pelvis is performed with IV Contrast, patient injected with 80 mL of Isovue 30 0. FINDINGS- LUNG BASES- No significant abnormality is appreciated. LIVER/GB-numerous hypodensities within the liver too small to characterize and most likely in the bas is of simple cyst and appear stable from prior exam. Postcholecystectomy changes noted.. PANCREAS- No gross abnormality is seen. SPLEEN- No gross abnormality is seen. RVNGEVUF-ncysi-icogo adrenal nodule stable from prior exam likely related to adenoma. KIDNEYS/BLADDER-multiple bilateral renal simple appearing cyst with no hydronephrosis.. There is a st able 2.5 cm right posterior medial renal cortical lesion measuring 45 Hounsfield units could represen t hemorrhagic cyst. Solid neoplasms not excluded. Additional 8 mm hyperdense lesion off the lateral c ortex of the left kidney BOWEL- no bowel dilatation. Normal appendix. LYMPH NODES- No greater than 1cm abdominal or pelvic lymph nodes areappreciated. OSSEOUS STRUCTURES-hypertrophic and degenerative changes spine.. 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 OTHER- post surgery involving the aorta stable from prior exam. Attenuation surrounding the wall of the graft is stable. Fat-containing inguinal hernias noted. The prostate is markedly enlarged correlate clinically. Prostate calcification seen. Disc bulging at multiple levels noted. IMPRESSION- 1. Marked prostate hypertrophy. Correlate with PSA. 2. Indeterminate right and left renal lesion similar appearance from 2016 and therefore most likely r elated to proteinaceous cyst or hemorrhagic cyst. Correlation with MRI could BE obtained for confirma tion. 3. Additional renal and suspected hepatic cysts similar in appearance. 4. Postoperative change involving the aorta similar in appearance to the prior exams.
== END 2019-12-27 13:10 | disposition home or self-care (01) ==
LOC: EC 09:59
DX: N40.1 Benign prostatic hyperplasia with lower urinary tract symptoms (principal); N32.89 Other specified disorders of bladder; R10.30 Lower abdominal pain, unspecified; E78.5 Hyperlipidemia, unspecified; I10 Essential (primary) hypertension; F17.200 Nicotine dependence, unspecified, uncomplicated; Z79.899 Other long term (current) drug therapy; Z88.2 Allergy status to sulfonamides; Z98.890 Other specified postprocedural states
CPT/HCPCS: 99284; 96360; 96361 ×2; 51798; 36415; 80053; 85025; 81001; 74177; G0103; Q9967

== ENCOUNTER → 2023-10-13 | Outpatient (CLI) | payer MEDICARE ==
--- NOTE | 2023-10-13 12:53 | XR ---
EXAMINATION TYPE: XR chest 2V DATE OF EXAM: 10/13/2023 COMPARISON: NONE HISTORY: Cough. TECHNIQUE: Frontal and lateral views of the chest are obtained. FINDINGS: There is no focal air space opacity, pleural effusion, or pneumothorax seen. The cardiac silhouette size is within normal limits. The osseous structures are intact. IMPRESSION: No acute cardiopulmonary process.
--- NOTE | 2023-10-13 13:27 | XR ---
Upright abdomen. DATE: 10/13/2023. COMPARISON: None available. CLINICAL HISTORY: Constipation and abdominal pain. IMPRESSION: There only appears to be a small amount of stool within the colon. No signs of obstruction are seen. No abnormal mass effect or free air is identified.
== END | disposition home or self-care (01) ==
LOC: RADXRMAIN 11:49
PROVIDERS: ATTEND Family Medicine
DX: J44.9 Chronic obstructive pulmonary disease, unspecified (principal); K59.00 Constipation, unspecified
CPT/HCPCS: 71046; 74018